=== PATIENT | female | born 2000 | race Caucasian/White ===

== ENCOUNTER 2024-02-25 22:22 | Emergency (ER) | payer OTHER, SELFPAY ==
[2024-02-25 22:35] VITALS: BP 154/107
[2024-02-25 23:04] LABS: Urine Albumin Negative (Neg - Trace); Urine Bilirubin Negative (Negative); Urine Character Clear (Clear); Urine Color Yellow; Urine Glucose Negative (Negative); Urine Ketone Trace (Negative); Urine Leukocyte 1+ (Negative); Urine Nitrite Negative (Negative); Urine Occult Blood Negative (Negative); Urine Specific Gravity 1.025 (<1.030); Urine Urobilinogen Negative (Neg - 1+)
[2024-02-25 23:13] LABS: Urine Bacteria Many (Negative); Urine Red Blood Cell 0-2 /HPF (0-2); Urine Squamous Cell >30 /LPF (Few)
[2024-02-25 23:14] LABS: Urine Mucus Moderate
[2024-02-25 23:37] LABS: ALT (SGPT) 48 U/L (0-35); AST (SGOT) 32 U/L (14-36); Albumin 4.5 g/dl (3.5-5.0); Alkaline Phosphatase 67 U/L (38-126); Blood Urea Nitrogen 16 mg/dl (7-17); Calcium 9.6 mg/dl (8.4-10.2); Carbon Dioxide 26 mmol/L (22-30); Chloride 107 mmol/L (98-107); Glucose 102 mg/dl (70-99); Lipase 102 U/L (23-300); Potassium 4.1 mmol/L (3.5-5.1); Sodium 141 mmol/L (135-145); Total Bilirubin 0.6 mg/dl (0.2-1.3); Total Protein 7.3 g/dl (6.3-8.2); eGFR > 60.00
[2024-02-26 00:15] VITALS: BMI 35.1
--- NOTE | 2024-02-26 00:27 | ED.GENMED ---
History of Present Illness
General
Chief Complaint: Abdominal Pain
Source: patient
Exam Limitations: none
Time Seen by Provider: 02/25/24 23:44
History of Present Illness
History of Present Illness:
This is a 23 year old female that comes in with c/o left lower abd pain. States that this started a couple of days ago. States that she is nauseated. States that occasionally the pain shots across to the lower abd. States that it has luis constant
and that the pain is different then her PCOS pain. States that she vomited on Saturday and that she has had a headache. Denies any fever, chills, chest pain, SOB, diarrhea, dizziness, urinary burning.
Past History
Past History
ED Past Medical History: Other (Headaches, PCOS)
ED Past Surgical History: None
Social History
Tobacco: Non-smoker
Alcohol: Occasional
Drug: None
Personal: Single
Living: with family
Review of Systems
Review of Systems
All Other Systems: ROS reviewed and negative except as documented in HPI and ROS
Constitutional: Reports no symptoms; Denies fever or chills
EENT: Reports no symptoms
Respiratory: Reports no symptoms; Denies cough or trouble breathing
Cardiac: Reports no symptoms; Denies chest pain
ABD/GI: Reports abdominal pain, nausea and vomiting (Saturday); Denies diarrhea
: Denies dysuria, frequency or urgency
Musculoskeletal: Reports no symptoms
Skin: Reports no symptoms
Neurological: Reports headache; Denies dizzy
Psychiatric: Reports no symptoms
Phy Exam
General Physical Exam
General Presentation: no apparent distress
General age: appears stated age
General Skin: warm and dry
General Habitus: obese
General Mental: alert
General Hydration: appears well hydrated
ENT Exam
ENT Exam: TM's normal, pharynx normal and neck supple
Eye Exam
Eye Exam: EOMI
Cardiovascular Exam
Cardiovascular Exam: regular rate/rhythm, no edema, no murmur and normal peripheral pulses
Pulmonary Exam
Pulmonary Exam: lungs clear, no respiratory distress, no rales, chest non tender, no crackles, no rhonchi, no wheezing and no cough
Gastrointestinal Exam
Gastrointestinal Exam: normal bowel sounds, soft, no organomegaly, no pulsatile mass, non distended, tender (Left sided tenderness with palpation) and other (Obese)
Musculoskeletal Exam
Musculoskeletal Exam: full ROM and no edema
Skin Exam
Skin Exam: normal color, warm/dry, no rash and no petechia
Psychiatric Exam
Psychiatric Exam: normal mood/affect
Course
Orders/Labs/Results
Orders:
Orders
02/25/24 22:39
IV Insert/Care/Rem.- Treatment PRN
02/25/24 22:52
Comprehensive Metabolic Panel Urgent
HCG, Serum Qualitative Screen Urgent
Comment: ADD ON
Lipase Urgent
Urinalysis Reflex To Culture Urgent
Date Specimen was Collected: 02/25/24
Time Specimen was Collected: 22:39
Urine Microscopic Reflex Cult Urgent
Urine Culture Urgent
MINOO Source: U
Specimen Description:
Date Specimen was Collected: 02/25/24
Time Specimen was Collected: 22:39
02/25/24 23:13
Complete Blood Count/With Diff Urgent
02/26/24 00:26
CT Abd/pelvis W Iv Cont Urgent
Comment:
Reason For Exam: Left lower abd pain
0.9% Sodium Chloride 1000 ml [Nss] 1,000 ml IV BOLUS
Ketorolac [Toradol] 30 mg IV NOW STA
Ondansetron Injectable [Zofran] 4 mg IV NOW STA
02/26/24 00:29
Add On- LAB Urgent
Tests Added?: HCG
Abnormal Lab Results
02/25/24 02/26/24
22:52 00:12
Abs Immat Gran (auto) 0.1 H 10^3/uL
(0-0.05)
Absolute Monos (auto) 0.8 H 10^3/uL
(0.1-0.6)
Immature Gran % 1.4 H %
(0-0.5)
Monocytes % 9.6 H %
(1.7-9.3)
Glucose 102 H mg/dl
(70-99)
ALT 48 H U/L
(0-35)
Urine Ketones Trace A
(Negative)
Leukocyte Esterase Rfl 1+ A
(Negative)
Urine Bacteria (Reflex) Many A
(Negative)
02/26/24 00:12
02/25/24 22:52
Glucose nonfasting. ALT mildly elevated. Urine negative for infection.
Vital Signs
Initial and Last Documented VS:
Initial Vital Signs
Temp Pulse Resp BP Pulse Ox
98.1 F 96 20 154/107 100
02/25/24 22:35 02/25/24 22:35 02/25/24 22:35 02/25/24 22:35 02/25/24 22:35
Last Documented Vital Signs
Temp Pulse Resp BP Pulse Ox
97.9 F 79 18 144/79 98
02/26/24 00:46 02/26/24 00:46 02/26/24 00:46 02/26/24 00:46 02/26/24 00:46
MDM/Problems Addressed
Differential Diagnosis Includes:
Diverticulitis, PCOS,
MDM/Problems Addressed:
This is a 23 year old female that comes in with c/o LLQ pain. States that this started a couple of days ago and has been constant. State that it feels different then her PCOS pain.
Will get labs and CT scan. IV fluid, Pain medication and Antiemetics.
Back into see patient. Explained that her blood work shows that her ALT is very slightly elevated. Urine is negative for infection. CT is negative for any acute process. Patient state that her pain is better since the pain medication. Explained that
this is most likely due to her PCOS. Offered patient an US and patient states that she would rather go home. Patient to follow up with the [facility]. Tylenol and ibuprofen for pain. Heat or ice to the lower abd. Return with fever, increased or changing
pain.
Chronic conditions affecting care:
PCOS
Acute Exacerbation and/or Progression of Chronic Illness:
PCOS
*Radiology
Radiology exam reviewed: radiology read reviewed (CT night hawk-O definite CT findings to account for the reported pain/symptoms. NO appendicitis or colitis. NO evidence of small bowel obstruction. NO free fluid or free air. Unremarkable CT
appearance of the gallbladder, biliary tract and pancreas. No evidence of hydroureteronephrosis or ) and all reviewed NAD by ED Provider (CT cont- or obstructing stone. Unremarkable appearance of the pelvic viscera. No AAA)
*Pulse Oximetry
Patient hypoxic: no
*EKG
Interpreted by ED Provider?: NA
Rate: EKG- N/A
*Can Closing Machine Operator Interpretation
Rate: Can Closing Machine Operator- N/A
*Critical Care Note
Total Time (30-74mins, 75-104mins- exclusive of procedures): Not Applicable
ED Attending Note
-
Portions of this chart may have been created with voice recognition software.� Occasional wrong word or��sound alike� substitutions may have occurred due to the inherent limitations of voice recognition software.
Discharge Plan
Departure
Patient Disposition: Home (Routine Discharge)
Date of Disposition: 02/26/24
Time of Disposition: 03:19
Patient with high blood pressure during this ER visit?: Yes
Condition: Good
Covid-19: Not Applicable
Discharge Problem:
Left lower quadrant abdominal pain
Instructions: Abdominal Pain, BLOOD PRESSURE
Referrals:
Emma Zhong, DO [Family Provider] - Call in 1-3 days for appt
Activity Restrictions/Additional Instructions:
As discussed, your blood work is normal and your CT scan is negative for any acute process. Please follow up with the [facility] for further evaluation. You may use Tylenol 1000mg every 6 hours for pain and alternate with Ibuprofen 600mg every 6 hours
with food for pain. IF YOU HAVE FEVER, INCREASED OR CHANGING PAIN, OR YOU HAVE ANY OTHER CONCERNS PLEASE RETURN TO THE EMERGENCY ROOM.
Interventions
Interventions:
*Risk Screen - Suicide Last Done: 02/25/24 22:35
*General Assessment Last Done: 02/25/24 22:35
*Neglect/Abuse Screening Last Done: 02/25/24 22:35
ED- Fall Risk Assessment Last Done: 02/25/24 22:35
*ED COVID-19 Vaccine History Last Done: 02/25/24 22:35
PQ-Zqbjeh-Ndlnfkwgma Assessment Last Done: 02/26/24 00:15
Discharge Date and Time
Print Language: GREEK
[2024-02-26 00:36] LABS: % Basophils 0.6 % (0-2); % Eosinophils 2.3 % (0-6); % Immature Granulocytes 1.4 % (0-0.5); % Monocytes 9.6 % (1.7-9.3); % Neutrophils 53.1 % (42.2-75.2); Absolute Basophils 0.1 10^3/uL (0-0.2); Absolute Eosinophils 0.2 10^3/uL (0-0.7); Absolute Immature Granulocytes 0.1 10^3/uL (0-0.05); Absolute Lymphocytes 2.9 10^3/uL (1.2-3.4); Absolute Monocytes 0.8 10^3/uL (0.1-0.6); Absolute Neutrophils 4.6 10^3/uL (1.4-6.5); Hematocrit 38.7 % (37.0-47.0); Hemoglobin 13.4 g/dL (12.0-16.0); Mean Corp Hgb Conc. 34.6 g/dL (33.0-37.0); Mean Corpuscular Hgb 29.8 pg (27.0-31.0); Mean Corpuscular Volume 86.2 fL (81.0-99.0); Mean Platelet Volume 10.1 fL (7.4-10.4); Nucleated Red Blood Cells % 0 %; Platelet Count 241 10^3/uL (130-400); Red Blood Cell Count 4.49 10^6/uL (4.20-5.40); Red Cell Dist. Width 12.5 % (11.5-14.5); White Blood Cell Count 8.7 10^3/uL (4.8-10.8)
[2024-02-26] MEDS: TORADOL 30 MG IV (00:42)
[2024-02-26] MEDS: NSS 1000 IV (00:42)
[2024-02-26] MEDS: ZOFRAN 4 MG IV (00:42)
[2024-02-26 00:45] VITALS: BP 144/79
[2024-02-26 00:46] VITALS: BP 144/79
[2024-02-26 01:20] LABS: HCG, Serum Qualitative Screen Negative
[2024-02-26 03:17] VITALS: BP 140/74
== END 2024-02-26 03:31 | disposition home or self-care (01) ==
LOC: EMR 22:22
PROVIDERS: Emergency Medicine; EMERGENCY PHYSICIAN Student in an Organized Health Care Education/Training Program; FAMILY PHYSICIAN Family Medicine
DX: R10.32 Left lower quadrant pain (principal); E28.2 Polycystic ovarian syndrome
CPT/HCPCS: 99284; 96374; 96375; 96361; 74177; 80053; 81003; 81015; 83690; 84703; 85025; 87086; Q9967

== ENCOUNTER 2025-04-09 08:46 | Emergency (ER) | payer OTHER, SELFPAY ==
[2025-04-09 08:48] VITALS: BP 164/101
--- NOTE | 2025-04-09 09:02 | ED.GENMED ---
History of Present Illness
General
Chief Complaint: Flank Pain
Source: patient
Exam Limitations: none
Time Seen by Provider: 04/09/25 08:53
Nursing documentation reviewed up to this point in time: agreed with
History of Present Illness
History of Present Illness:
Patient is a 24-year-old female who presents to the ER for evaluation. Patient reports 2 hours ago she started with sudden right back pain which radiates to her front. She is nauseous and vomited several times. No injury. Pain is not made worse
with movement. She denies any urinary frequency urgency hematuria.
No history of kidney stones.
Past History
Past History
ED Past Medical History: Other (Headaches, PCOS)
ED Past Surgical History: None
Social History
Tobacco: Non-smoker
Alcohol: Occasional
Drug: None
Personal: Single
Living: with family
Phy Exam
General Physical Exam
General Presentation: no apparent distress
General age: appears stated age
General Skin: warm and dry
General Habitus: normal
General Mental: alert
General Hydration: appears well hydrated
Gastrointestinal Exam
Gastrointestinal Exam: soft and other (tender RUQ /right mid/to lower abdomen )
Neurological Exam
Neurological Exam: alert and oriented x3
Musculoskeletal Exam
Musculoskeletal Exam: full ROM
Skin Exam
Skin Exam: normal color and warm/dry
Psychiatric Exam
Psychiatric Exam: normal mood/affect
Course
Orders/Labs/Results
Orders:
Orders
04/09/25 09:01
IV Insert/Care/Rem.- Treatment PRN
0.9% Sodium Chloride 1000 ml [Nss] 1,000 ml IV BOLUS
Test Result ONCE
04/09/25 09:02
CT Abd/Pel (IV only)-DH only Urgent
Comment:
Reason For Exam: right sided abd pain/flank pain also (tender )
Ketorolac [Toradol] 15 mg .ROUTE .STK-MED ONE
04/09/25 09:03
Ondansetron Injectable [Zofran] 4 mg .ROUTE .STK-MED ONE
04/09/25 09:16
Complete Blood Count/With Diff Urgent
0.9% Sodium Chloride 1000 ml [Nss] 1,000 ml IV BOLUS
Ketorolac [Toradol] 15 mg IV NOW STA
Ondansetron Injectable [Zofran] 4 mg IV NOW STA
04/09/25 09:51
Comprehensive Metabolic Panel Urgent
HCG, Serum Qualitative Screen Urgent
Lipase Urgent
04/09/25 11:12
HYDROmorphone [Dilaudid] 0.5 mg IV NOW STA
04/09/25 11:28
Urinalysis Reflex To Culture Urgent
Date Specimen was Collected: 04/09/25
Time Specimen was Collected: 11:24
Urine Microscopic Reflex Cult Urgent
Urine Culture Urgent
MINOO Source: U
Specimen Description:
Date Specimen was Collected: 04/09/25
Time Specimen was Collected: 11:24
04/09/25 11:47
Acetaminophen [Tylenol] 1,000 mg PO NOW STA
04/09/25 11:48
Tamsulosin [Flomax] 0.4 mg PO NOW STA
Abnormal Lab Results
04/09/25 04/09/25 04/09/25
09:16 09:51 11:28
MPV 10.6 H fL
(7.4-10.4)
Lymphocytes % 20.4 L %
(20.5-51.1)
Chloride 110 H mmol/L
(98-107)
Glucose 105 H mg/dl
(70-99)
Urine Ketones 2+ A
(Negative)
Ur Occult Blood Reflex 4+ A
(Negative)
Leukocyte Esterase Rfl 3+ A
(Negative)
Urine RBC 30-40 A /HPF
(0-2)
Urine Bacteria (Reflex) Few A
(Negative)
Urine Albumin (Reflex) 2+ A
(Neg - Trace)
04/09/25 09:16
04/09/25 09:51
Vital Signs
Initial and Last Documented VS:
Initial Vital Signs
Temp Pulse Resp BP Pulse Ox
97.6 F 76 20 164/101 100
04/09/25 08:48 04/09/25 08:48 04/09/25 08:48 04/09/25 08:48 04/09/25 08:48
Last Documented Vital Signs
Temp Pulse Resp BP Pulse Ox
97.6 F 76 20 141/90 100
04/09/25 08:48 04/09/25 08:48 04/09/25 08:48 04/09/25 10:00 04/09/25 10:15
MDM/Problems Addressed
Differential Diagnosis Includes:
Not limited to renal colic UTI pyelonephritis appendicitis
MDM/Problems Addressed:
Patient with 2 mm calculus at the right UVJ with mild to moderate hydro feeling improved after medications, fluids. Patient feels well to go home labs unremarkable patient no acute distress given referral for urology. Patient wishes to take
ibuprofen and Tylenol only discussed return if any worsening of symptoms
*Radiology
Radiology exam reviewed: radiology read reviewed
*Pulse Oximetry
SaO2: 100
Oxygen Mode of Delivery: Room air
Patient hypoxic: no
*Critical Care Note
Total Time (30-74mins, 75-104mins- exclusive of procedures): Not Applicable
ED Attending Note
-
Portions of this chart may have been created with voice recognition software.� Occasional wrong word or��sound alike� substitutions may have occurred due to the inherent limitations of voice recognition software.
Discharge Plan
Departure
Patient Disposition: Home (Routine Discharge)
Date of Disposition: 04/09/25
Time of Disposition: 11:43
Patient with high blood pressure during this ER visit?: Yes
Condition: Fair
Covid-19: Not Applicable
Discharge Problem:
Renal colic on right side
Instructions: Kidney Stones (DC), How to Strain Your Urine, BLOOD PRESSURE
Prescriptions:
New
tamsulosin [Flomax] 0.4 mg capsule
0.4 mg PO DAILY Qty: 7 0RF
Referrals:
Anish Blakely MD [Active, Urology]
Emma Zhong DO [Family Provider, Family Practice]
Activity Restrictions/Additional Instructions:
As discussed alternate between ibuprofen, 600 mg every 6-8 hours and Tylenol 650 mg every 4-6 hours. Stay well-hydrated. In addition please take Flomax : this medicine was sent to pharmacy.
Follow-up with urology please call the office today to schedule an appointment as soon as possible. Return if any worsening of symptoms
Interventions
Interventions:
*Risk Screen - Suicide Last Done: 04/09/25 09:12
*General Assessment Last Done: 04/09/25 09:12
*Neglect/Abuse Screening Last Done: 04/09/25 09:12
*ED- Fall Risk Assessment Last Done: 04/09/25 09:12
*ED COVID-19 Vaccine History Last Done: 04/09/25 09:12
*Nursing Disposition Last Done: 04/09/25 12:03
BN-Rujnyy-Vxzsylfcdx Assessment Last Done: 04/09/25 09:12
ED-Female Genitourinary Assessment Last Done: 04/09/25 09:12
Discharge Date and Time
Discharge Date/Time: 04/09/25 12:03
Print Language: AUSTRIAN
[2025-04-09 09:12] VITALS: BMI 34.4
[2025-04-09] MEDS: NSS 1000 IV (09:15)
[2025-04-09] MEDS: ZOFRAN 4 MG IV (09:17)
[2025-04-09] MEDS: TORADOL 15 MG IV (09:17)
[2025-04-09 09:19] VITALS: BP 150/91
[2025-04-09 09:35] LABS: Hematocrit 39.2 % (37.0-47.0); Hemoglobin 13.2 g/dL (12.0-16.0); Mean Corp Hgb Conc. 33.7 g/dL (33.0-37.0); Mean Corpuscular Volume 86.7 fL (81.0-99.0); Nucleated Red Blood Cells % 0 %; Platelet Count 208 10^3/uL (130-400); Red Cell Dist. Width 12.4 % (11.5-14.5)
[2025-04-09 10:00] VITALS: BP 141/90
[2025-04-09 10:19] LABS: HCG, Serum Qualitative Screen Negative
[2025-04-09 10:31] LABS: ALT (SGPT) 32 U/L (0-35); AST (SGOT) 20 U/L (14-36); Albumin 4.1 g/dl (3.5-5.0); Alkaline Phosphatase 53 U/L (38-126); Blood Urea Nitrogen 17 mg/dl (7-17); Calcium 8.9 mg/dl (8.4-10.2); Carbon Dioxide 24 mmol/L (22-30); Chloride 110 mmol/L (98-107); Estimated Creatinine Clearance > 125 ml/min; Glucose 105 mg/dl (70-99); Lipase 83 U/L (23-300); Potassium 4.3 mmol/L (3.5-5.1); Sodium 139 mmol/L (135-145); Total Protein 6.8 g/dl (6.3-8.2); eGFR > 60.00
[2025-04-09] MEDS: DILAUDID 0.5 MG IV (11:23)
[2025-04-09] MEDS: TYLENOL 1000 MG PO (11:58)
[2025-04-09] MEDS: FLOMAX 0.4 MG PO (11:58)
[2025-04-09 12:02] LABS: Urine Character Slightly Cloudy (Clear)
[2025-04-09 12:22] LABS: Urine Squamous Cell 16-20 /LPF (Few)
[2025-04-09 12:23] LABS: Urine Red Blood Cell 30-40 /HPF (0-2)
== END 2025-04-09 12:03 | disposition home or self-care (01) ==
LOC: EMR 08:46
PROVIDERS: Nurse Practitioner; EMERGENCY PHYSICIAN Emergency Medicine; FAMILY PHYSICIAN Family Medicine
DX: N13.2 Hydronephrosis with renal and ureteral calculous obstruction (principal); R03.0 Elevated blood-pressure reading, without diagnosis of hypertension
CPT/HCPCS: 99285; 96374; 96375 ×2; 96361; 74177; 80053; 81003; 81015; 83690; 84703; 85025; 87086; Q9967